=== PATIENT | female | born 1985 | race African-American/Black ===

== ENCOUNTER 2018-01-21 12:59 | Emergency (ER) | payer OTHER ==
[~2018-01-21 12:59] MED LIST: KEFLEX500 M1 PO; LASIX20 M1 PO
[2018-01-21 13:09] VITALS: BP 141/74
[2018-01-21] MEDS ORDERED: LABETALOL HCL200 M1 PO (14:47)
[2018-01-21] MEDS ORDERED: WELLBUTRIN XL150 M2 PO (14:48)
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
[2018-01-21] MEDS ORDERED: CYCLOBENZAPRINE10 M1 PO (16:10)
[2018-04-16] MEDS ORDERED: VITAFOL ULTRA1 EACH PO (07:54)
[2018-04-16] MEDS ORDERED: ZYRTEC10 M3 PO (07:59)
== END 2018-01-21 16:18 ==
LOC: ERH 12:59
DX: M54.5 Low back pain (principal); V89.2XXA Person injured in unspecified motor-vehicle accident, traffic, initial encounter
CPT/HCPCS: 72110; 81025

== ENCOUNTER 2018-05-01 02:55 | Inpatient (IN) | payer OTHER ==
[~2018-05-01] VITALS: Ht 167.6 cm; Wt 122.5 kg
[~2018-05-01 02:55] MED LIST changes: +CYCLOBENZAPRINE10 M1 PO; +LABETALOL HCL200 M1 PO; +VITAFOL ULTRA1 EACH PO; +WELLBUTRIN XL150 M2 PO; +ZYRTEC10 M3 PO
--- NOTE | 2018-05-01 11:57 | Operative Report ---
Operative/Inv Procedure Report Surgery Date: 05/01/18 Name of Procedure: Laparoscopic Sleeve Gastrectomy, Laparoscopic Hiatal hernia repair Pre-Operative Diagnosis: Morbid Obesity BMI 45, AB, HTN, Hiatal hernia Post-Operative Diagnosis: Same Estimated Blood Loss: less than 50ml Surgeon/Produce Runner: Kenan Swartz DO Anesthesia: general endotracheal tube IV Fluids: 1000 cc Drains: None Specimens: Stomach Complications: None Condition: Stable Operative Indication: This is a 32-year-old female presented to the office for workup for bariatric surgery. After appropriate workup was completed I discussed with the patient the band, the sleeve, and the gastric bypass. The patient chose to undergo a sleeve gastrectomy. All risks including but not limited to bleeding, infection, leak, stricture, injury to surrounding bowel/esophagus/stomach/liver/spleen, long-term reflux, DVT/PE, and mortality of 09/999 patients were discussed in detail. The patient understood everything and decided to proceed. Operative/Procedure Note Note: The patient was brought to the operating room and placed on the operating room table in supine position. Venodyne stockings were placed and adequate general endotracheal anesthesia was obtained. The patient was prepped and draped in standard surgical fashion. Began the procedure by making a 2 cm transverse incision supraumbilically and slightly to the left of the midline. Then using a 12 mm clear Visiport and a 10 mm 0 laparoscope, the abdominal cavity was accessed. Great care was taken to go through the anterior rectus sheath, the posterior rectus sheath, and through the peritoneum. Once we entered the peritoneum the abdominal cavity was insufflated to 15 mmHg. Upon initial examination no obvious gross pathology was seen. Accessory trocars were placed, 5 mm in the epigastrium for the Radha liver retractor. The retractor was inserted and the liver was retracted anteriorly exposing the hiatus, small hiatal hernia was seen. 5 mm ports were placed in the right and left upper quadrant, a 5 mm left lateral port, and a 15 mm right lateral port. Began the procedure by mobilizing the greater curvature of the stomach approximately 7 cm from the pylorus. Once the retrogastric space was reached the whole greater curvature was mobilized maintaining hemostasis using Harmonic scalpel. Full hiatal dissection was performed, a small hiatal hernia was seen. The left roxi of the diaphragm was dissected away from the esophagus, reducing the hernia sac. We then brought our attention to the right roxi, the pars flaccida was opened until the right roxi was clearly visualized. Following this the right roxi was dissected away from the esophagus as well and the esophagus was circumferentially dissected out of the chest. At the completion of dissection the esophagus was in the abdominal cavity for about 2-3 cm. The esophagus was retracted anteriorly and the hiatus was closed using 2-0 Tycron suture. At the completion of the closure there was ample room for the esophagus and the hiatus was adequately closed. Posterior adhesions were taken down using Harmonic scalpel as well. Once the stomach was adequately mobilized a 38 Maltese bougie was inserted and placed along the lesser curvature of the stomach. Once the bougie was in the appropriate position we began creating our sleeve, two 60 mm black staple loads with seamguard followed by three 60 mm purple staple loads with seamguard as well. Great care was taken to leave ample room at the incisura angularis, to prevent any twisting or kinking of the sleeve, to stay lateral to the esophagogastric fat pad, and to do a full fundal excision. At the completion of the staple line the staple line was examined, it appeared intact and no obvious bleeding was noted. The bougie was removed, the sleeve was lying nicely without any twisting or kinking. The resected stomach was removed through the right lateral port site. The port and the left upper quadrant were irrigated until clear. All ports were removed under direct visualization no obvious bleeding was noted. The 15 mm port site fascia was closed using 0 Vicryl suture. The skin was closed using 4-0 Monocryl. Steri- Strips and dressings were placed. The patient was successfully extubated and transferred to the recovery room in stable condition. The patient tolerated the procedure well with no complications. Findings: 3 cm hiatal hernia, 38 Fr bougie CC: Drew TIERNEY,Eve Thomas
[2018-05-01 14:14] VITALS: BP 135/80
--- NOTE | 2018-05-01 14:27 | Admission Core Measures ---
Acute Coronary Syndrome (CM) ACS Core Measures Acute Coronary Syndrome Diagnosis No Congestive Heart Failure (NEW) CHF Core Measures Congestive Heart Failure Diagnosis No Cerebrovascular Accident CVA Core Measures CVA/TIA Diagnosis No Venous Thromboembolism VTE Core Kelly (View Protocol) VTE Risk Factors Surgery No Mechanical VTE Prophylaxis d/t N/A MechProphylax Ordered No VTE Pharm Prophylaxis d/t NA PharmProphylax ordered Problem List As ranked by this Provider includes Assessment & Plan 1. Morbid obesity HOME MEDS Home Med List Cetirizine HCl (Zyrtec) 10 MG TABLET 1 TAB PO DAILY ALLERGIES (Reported) Labetalol HCl 200 MG TABLET 1 TAB PO BID HEART HEALTH (Reported) Pnv#67/Iron Ps/FA Cmb#1/Dha (Vitafol Ultra Softgel) 29 MG IRON-1 MG-200 MG CAPSULE 1 TAB PO DAILY VITAMIN SUPPLEMEMT (Reported)
--- NOTE | 2018-05-01 14:30 | Patient Discharge Instructions ---
Discharge Instructions General Discharge Information You were seen/treated for: Morbid obesity, hiatal hernia You had these procedures: Laparoscopic sleeve gastrectomy and hiatal hernia repair Watch for these problems: fever>101.3, increased pain, redness/swelling/drainage, dizziness, shortness of breath, chest pains No bath, but you may shower: Yes Other wound care: ok to shower. leave white steri strips in place. keep incisions clean & dry. Diet Continue normal diet: No Recommended Diet: Bariatric Activity Full Activity/No Limits: No Activity Self Limited: Yes Pounds, do NOT lift more than: 10 Additional ACTIVITY Info: No strenuous actvity, avoid heavy lifting Acute Coronary Syndrome Inclusion Criteria At DC or during hospital stay patient has or had the following: ACS DIAGNOSIS No Discharge Core Measures Meds if any: Prescribed or Continued at Discharge Meds if any: NOT Prescribed or Continued at Discharge Congestive Heart Failure Inclusion Criteria At DC or during hospital stay patient has or had the following: CHF DIAGNOSIS No Discharge Core Measures Meds if any: Prescribed or Continued at Discharge Meds if any: NOT Prescribed or Continued at Discharge Cerebrovascular accident Inclusion Criteria At DC or during hospital stay patient has or had the following: CVA/TIA Diagnosis No Discharge Core Measures Meds if any: Prescribed or Continued at Discharge Meds if any: NOT Prescribed or Continued at Discharge Venous thromboembolism Inclusion Criteria VTE Diagnosis No VTE Type NONE VTE Confirmed by (Test) NONE Discharge Core Measures - Per Current guidelines, there needs to be overlap - treatment for the first 5 days of Warfarin therapy. - If discharged on Warfarin prior to 5 days of - overlap therapy, the patient will need to be - assessed for post discharge needs including - *Post discharge parental anticoagulation - *Warfarin and/or parental anticoagulation education - *Follow up date to check INR post discharge At least 5 days overlap therapy as Inpatient No Meds if any: Prescribed or Continued at Discharge Note: Overlap Therapy is Warfarin and Anticoagulant Meds if any: NOT Prescribed or Continued at Discharge
--- NOTE | 2018-05-01 14:37 | Surgical Discharge Summary ---
Visit Information Visit Dates Admission Date: 05/01/18 Discharge Date: 05/02/18 History of Present Illness Chief Complaint: Morbid obesity, gerd Medical History Neurological: NONE Cardiovascular: hypertension Respiratory: NONE Gastrointestinal: NONE Hepatic: NONE Renal: NONE Musculoskeletal: NONE Psychiatric: NONE Endocrine: NONE Surgical History Pertinent Surgical History: non-contributory Psychosocial History What is Your Primary Language? Haitian Review of Systems: See H&P Hospital Course Course Attending Physician: Kenan Swartz DO Primary Care Physician: Eve Grey Hospital Course: Patient presented for an elective laparoscopic sleeve gastrectomy and hiatal hernia repair, without complication. The following day, upper GI was preformed and negative. Stage 1 bariatric diet was started and tolerated. Patient is medically stable for discharge at this time. Allergies: Coded Allergies: peanut (SWELLING 04/16/18) shellfish derived (UNKNOWN 01/21/18) Disposition Summary Disposition Principal Diagnosis: Morbid obesity Additional Diagnosis: hiatal hernia Discharge Disposition: home or self care Discharge Instructions General Discharge Information Code Status: Full Code Patient's Diet: Bariatric Patient's Activity: Avoid strenuous activities, avoid heavy lifting Follow-Up Instructions/Appts: Follow up with Dr. Swartz in one week from date of surgery Medications at Discharge Discharge Medications: Start taking the following new medications: Hydrocodone/Acetaminophen (Hydrocodon-Acetamin 7.5-325/15) 7.5 MG-325 MG/15 ML ( 15 ML) SOLUTION 15 Milliliters ORAL EVERY SIX HOURS NEEDED as needed for PAIN SCALE 4-6 ( MODERATE) Qty = 15 No Refills
[2018-05-01] MEDS ORDERED: LOVENOX40 MG/0.1 SC (15:08)
[2018-05-01] MEDS ORDERED: PROTONIX40 M3 PO (15:14)
--- NOTE | 2018-05-01 15:37 | PN- Bariatrics ---
Subjective Subjective: Post op check: Patient complaining of nausea at the present time, small amout of emesis. Denies flatus. Has voided. Denies chest pain and shortness of breath. Objective Vital Signs and I&Os Vital Signs Date Time Temp Pulse Resp B/P B/P Pulse O2 O2 Flow FiO2 Mean Ox Delivery Rate 05/01 1414 98.2 84 16 135/80 98 Room Air Intake & Output 05/01 1600 05/01 0805/01 0000 04/30 1600 04/30 0800 04/30 0000 Intake Total Output Total Balance Patient 270 lb Weight Weight Bed scale Measurement Method Physical Exam: General: Sleepy but oriented x3, no distress Cardiac: RRR, s1s2 Pulm: CTA bilaterally, non-labored respiratory effort Abd: Softly distended, dressings intact. Bowel sounds absent Extremities: Neurovascularly intact. Bilateral calves soft and non-tender Assessment/Plan Assessment/Plan This is a 32 year old female, pmh morbid obesity, hiatal hernia, and htn. POD 0 , s/p laparoscopic sleeve gastrectomy. -bariatric stage one now, npo p mn for possible upper gi tomorrow am -abx: ancef 3g q8 x2 additional doses -zofran prn for nausea -simethicon for gas discomfort -oob/incentive spirometry encouraged -hep sub q for dvt ppx in house, lovenox for home +/- upper gi in am Will discuss plan of care with Dr. Swartz Core Measures Venous Thromboembolism VTE Risk Factors Surgery No Mechanical VTE Prophylaxis d/t N/A MechProphylax Ordered No VTE Pharm Prophylaxis d/t NA PharmProphylax ordered
[2018-05-01 21:10] VITALS: BP 145/90
[2018-05-01 21:55] VITALS: BP 150/98
[2018-05-02 06:44] VITALS: BP 140/84
--- NOTE | 2018-05-02 07:57 | PN- Bariatrics ---
See Addendum Subjective Subjective: Nausea and vomiting last evening. Vomiting has resolved, nausea has improved but still mildly present. Currently n.p.o. Epigastric discomfort, pressure/gas feeling. Positive small amount of flatus this morning. No fever or flulike illness Objective Vital Signs and I&Os Vital Signs Date Time Temp Pulse Resp B/P B/P Pulse O2 O2 Flow FiO2 Mean Ox Delivery Rate 05/02 0644 98.6 87 18 140/84 97 05/02 0600 97 Room Air 05/01 2200 100 Room Air 05/01 2155 97.9 94 18 150/98 100 Room Air 05/01 2110 97 16 145/90 100 Room Air 05/01 1800 98 Room Air 05/01 1600 98 Room Air 05/01 1414 98.2 84 16 135/80 98 Room Air 05/01 1414 98 Room Air Intake & Output 05/02 08/ 0000 08 1600 05/01 0800 05/01 0000 04/30 1600 Intake Total 1200 775 165 Output Total 550 1050 400 Balance 650 -275 -235 Intake, IV 1200 700 150 Intake, Oral 75 15 Number 0 0 Bowel Movements Output, 100 Emesis Output, Urine 550 950 400 Patient 270 lb Weight Weight Bed scale Measurement Method Physical Exam: Well-developed well-nourished no apparent distress. HEENT: Atraumatic, extraocular motion intact Neck: Supple, no lymphadenopathy Respiratory: No respiratory distress Abdomen: Minimal distention. Mild tenderness epigastrium. Portal sites clean dry and intact with some mild serosanguineous drainage at a few sites. Faint bowel sounds Extremities: No edema, no calf pain Neuro: Alert and oriented x3 Psych: Mood affect normal, normal memory normal judgment. Skin: Warm and dry, no rash on exposed skin Results Last 48 Hours of Labs: Laboratory Tests 05/02 05/01 0655 0800 Chemistry Sodium Pending Potassium Pending Chloride Pending Carbon Dioxide Pending Anion Gap Pending Hematology CBC w Diff Pending WBC Pending RBC Pending Hgb Pending Hct Pending MCV Pending MCH Pending MCHC Pending RDW Pending Plt Count Pending MPV Pending Urines Urine Test NEGATIVE Assessment/Plan Assessment/Plan This is a 32 year old female, pmh morbid obesity, hiatal hernia, and htn. POD 1 , s/p laparoscopic sleeve gastrectomy. -Proceed with upper GI study this morning, continue n.p.o. -Perioperative antibiotics -Continue IV fluids -zofran prn for nausea -simethicon for gas discomfort -oob/incentive spirometry encouraged -hep sub q for dvt ppx in house, lovenox for home -Encourage ambulation -Follow a.m. labs -potential discharge home later today -Will discuss with Dr. Swartz Core Measures Venous Thromboembolism VTE Risk Factors Surgery No Mechanical VTE Prophylaxis d/t N/A MechProphylax Ordered No VTE Pharm Prophylaxis d/t NA PharmProphylax ordered
[2018-05-02 08:11] LABS: ABSOLUTE BASOPHIL COUNT 0 /CUMM (0.0-0.2); ABSOLUTE EOSINOPHIL COUNT 0 /CUMM (0.0-0.7); ABSOLUTE GRANULOCYTE CT 12.5 /CUMM (1.4-6.5); ABSOLUTE LYMPH COUNT 2.4 /CUMM (1.2-3.4); ABSOLUTE MONOCYTE COUNT 0.7 /CUMM (0.10-0.60); BASOPHIL % 0.2 % (0.0-2.0); EOSINOPHIL % 0 % (0-5); GRANULOCYTE % 80.1 % (42.2-75.2); HEMATOCRIT 39.2 % (37-47); MEAN CORPUSCULAR HGB CONC 33.4 G/DL (33.0-37.0); MEAN CORPUSCULAR VOLUME 86.8 FL (81.0-99.0); MEAN PLATELET VOLUME 9.2 FL (7.4-10.4); PLATELET COUNT 279 /CUMM (130-400); RBC DISTRIBUTION WIDTH 14.3 % (11.5-14.5); RED BLOOD CELL CT 4.51 /CUMM (4.20-5.40); WHITE BLOOD CELL COUNT 15.6 /CUMM (4.8-10.8)
--- NOTE | 2018-05-02 10:09 | RADIOLOGY REPORT ---
EXAMINATION: FL UPPER GI SERIES CLINICAL INFORMATION: 32-year-old female, status post laparoscopic gastric sleeve. Postop day 1. COMPARISON: None TECHNIQUE: A single contrast upper GI series with fluoroscopy and spot imaging was performed. The patient ingested 30 mL of Gastrografin without difficulty and was evaluated in the upright position. FINDINGS: A small sliding hiatal hernia is present. The residual stomach is intact without evidence of any leak. No evidence of any obstruction to the flow of Gastrografin across the stomach into the duodenum. Mild delayed clearing of Gastrografin is noted within the distal esophagus. FLUOROSCOPY TIME: 2 minutes, 15 seconds. NUMBER OF IMAGES: 7 sequences. IMPRESSION: 1. No evidence of any leak. 2. A small sliding hiatal hernia and mild delayed clearing of Gastrografin within the distal esophagus.
[2018-05-02 14:00] VITALS: BP 164/94
[2018-05-02] MEDS ORDERED: HYDROCODON-ACET15 ML PO (14:29)
[2018-05-02] MEDS ORDERED: LOVENOX40 MG/0.1 SC ×3 (14:40→14:48)
[2018-05-02] MEDS ORDERED: ALLERGY RELIEF10 M3 PO (14:45)
[2018-05-02] MEDS ORDERED: LABETALOL HCL200 M1 PO (14:46)
== END 2018-05-02 16:07 | DRG 403 ==
LOC: 2NB 02:55 → SDA 02:55 → ENRESERV 12:37 → ENTRNSPT 13:53 → EDTRNSPTSTS 14:03 → 2NB 14:14 → CMPTRNSPT 14:29 → ENPENDDIS 05-02 14:25 → 2NB 05-02 16:07
PROVIDERS: Physician Assistant Surgical
PROC: 0DB64Z3 Excision of Stomach, Percutaneous Endoscopic Approach, Vertical (ICD-10-PCS; principal; 2018-05-01)
PROC: 0BQT4ZZ Repair Diaphragm, Percutaneous Endoscopic Approach (ICD-10-PCS; 2018-05-02)
DX: E66.01 Morbid (severe) obesity due to excess calories (principal); Z68.41 Body mass index [BMI] 40.0-44.9, adult; I10 Essential (primary) hypertension; G47.33 Obstructive sleep apnea (adult) (pediatric); K44.9 Diaphragmatic hernia without obstruction or gangrene
CPT/HCPCS: 2NBP; 36592; 74240; 81025; J0131; J0690; J1644; J1885; J2405; J3490